=== PATIENT | female | born 1985 | race African-American/Black ===

== ENCOUNTER 2017-12-11 22:37 | Emergency (ER) | payer MEDICAID, OTHER ==
[~2017-12-11] VITALS: Ht 172.7 cm; Wt 68.2 kg
[~2017-12-11 22:37] MED LIST: ALBU8HFA IH
[2017-12-12] MEDS ORDERED: KETOROLAC TROMETHAMINE 60 MG/2 ML VIAL IM ONE
[2017-12-12 02:20] VITALS: BP 124/81
== END 2017-12-12 02:23 | disposition home or self-care (01) ==
LOC: EMS 22:38
DX: R07.89 Other chest pain (principal); F17.210 Nicotine dependence, cigarettes, uncomplicated; J45.909 Unspecified asthma, uncomplicated; Z88.0 Allergy status to penicillin; Z88.6 Allergy status to analgesic agent; Z88.5 Allergy status to narcotic agent
CPT/HCPCS: 71046; 81025; 93005; 96372; 99284; 99406; J1885

== ENCOUNTER 2019-10-29 23:47 | Emergency (ER) | payer OTHER ==
[~2019-10-29] VITALS: Ht 175.3 cm; Wt 7.3 kg
[2019-10-30] MEDS ORDERED: IBUPROFEN 800 MG TABLET PO ONE (04:30)
[2019-10-30 04:49] VITALS: BP 149/99
== END 2019-10-30 04:51 | disposition home or self-care (01) ==
LOC: EMS 23:49
DX: S60.212A Contusion of left wrist, initial encounter (principal); J45.909 Unspecified asthma, uncomplicated; F17.210 Nicotine dependence, cigarettes, uncomplicated; Z79.899 Other long term (current) drug therapy; Z98.890 Other specified postprocedural states; Z88.0 Allergy status to penicillin; Z88.5 Allergy status to narcotic agent; Z88.8 Allergy status to other drugs, medicaments and biological substances; Z88.6 Allergy status to analgesic agent; Y04.8XXA Assault by other bodily force, initial encounter; Y93.89 Activity, other specified; Y92.89 Other specified places as the place of occurrence of the external cause; Y99.8 Other external cause status

== ENCOUNTER 2020-08-05 15:48 | Emergency (ER) | payer OTHER ==
[~2020-08-05] VITALS: Ht 175.3 cm; Wt 72.7 kg
[2020-08-05] MEDS ORDERED: IBUPROFEN 600 MG TABLET PO ONE (16:15)
[2020-08-05] MEDS ORDERED: HydrOXYzine PAMOATE 50 MG CAPSULE PO ONE (16:15)
[2020-08-05 16:42] LABS: BASOPHILS % (AUTO) 0.7 % (0.0-2.0); EOSINOPHILS % (AUTO) 0.7 % (1.0-6.0); HEMATOCRIT 35.1 % (36-46); HEMOGLOBIN 12.1 g/dL (12.0-16.0); LYMPHOCYTES # (AUTO) 1.7 K/uL (1.0-4.8); LYMPHOCYTES % (AUTO) 22.2 % (22.0-44.0); MEAN CORPUSCULAR HEMOGLOBIN 35.7 pg (26.0-34.0); MEAN CORPUSCULAR HGB CONC 34.6 G/dL (31.0-37.0); MEAN CORPUSCULAR VOLUME 103 fL (80-100); MONOCYTES # (AUTO) 0.6 K/uL (0.1-1.0); MONOCYTES % (AUTO) 8.1 % (2.0-9.0); NEUTROPHILS # (AUTO) 5.3 K/uL (1.8-7.7); NEUTROPHILS % (AUTO) 68.3 % (40.0-70.0); PLATELET COUNT (AUTO) 256 K/uL (150-450); RED CELL DISTRIBUTION WIDTH 14.8 % (11.5-14.5)
[2020-08-05 17:01] LABS: PROTHROMBIN TIME 10.5 SEC (9.4-11.6)
[2020-08-05 17:02] LABS: ALANINE AMINOTRANSFERASE 18 U/L (12-78); ALBUMIN 4.4 g/dL (3.4-5.0); ALKALINE PHOSPHATASE 112 U/L (46-116); ANION GAP 11 mmol/L (8-16); ASPARTATE AMINOTRANSFERASE 38 U/L (15-37); BILIRUBIN,TOTAL 1.1 mg/dL (0.1-1.0); C-REACTIVE PROTEIN QUANT 1.88 mg/dL (0.00-0.30); CALCIUM, TOTAL 9.6 mg/dL (8.8-10.5); CARBON DIOXIDE 26 mmol/L (22-29); CHLORIDE 99 mmol/L (98-107); CREATININE 0.79 mg/dL (0.60-1.30); GLOMERULAR FILTR. RATE CALC > 60 mL/min (>60); GLUCOSE,RANDOM 102 mg/dL (70-110); HCG,QUANTITATIVE 1 mIU/mL (0-6); SODIUM SERUM 136 mmol/L (136-145); TOTAL PROTEIN, SERUM 7.5 g/dL (6.4-8.2); UREA NITROGEN, BLOOD 5 mg/dL (7-18)
[2020-08-05] MEDS ORDERED: LORazepam 1 MG TABLET PO ONE (17:15)
[2020-08-05] MEDS ORDERED: POTASSIUM CHLORIDE 20 MEQ ER TABLET PO ONE (17:15)
[2020-08-05 17:36] LABS: URIC ACID 3.8 mg/dL (2.6-7.2)
[2020-08-05 18:15] LABS: ERYTHROCYTE SEDIMENTATION RATE 3 MM/HR (0-20)
[2020-08-05] MEDS ORDERED: LIDOCAINE 1% 10 ML VIAL INJ ONE (18:30)
[2020-08-05 19:21] LABS: SPECIMENTYPE,BODY FLUID SYNOVIAL
[2020-08-05 19:57] LABS: APPEARANCE,UNSPUN,BODY FLUID CLOUDY (CLEAR)
[2020-08-05 19:59] LABS: COLOR,BODY FLUID YELLOW (LT YELLOW); TOTAL VOLUME,BODY FLUID 40 mL; WBC, BODY FLUID 17600 /cu. mm.
[2020-08-05 20:04] LABS: APPEARANCE,SPUN,BODY FLUID CLEAR (CLEAR)
[2020-08-05 20:17] LABS: LYMPHOCYTES,BODY FLUID 2 %; MONOCYTES,BODY FLUID 6 %; NEUTROPHILS,BODY FLUID 92 %
[2020-08-05 20:29] LABS: CRYSTALS, SYNOVIAL FLUID None Seen (None Seen)
[2020-08-05 20:30] LABS: BASOPHILS,BODY FLUID 0 %; EOSINOPHILS,BF (ANAL) 0 %; OTHER CELLS,BODY FLUID 0
[2020-08-05] MEDS ORDERED: MethylPREDNISolone SOD SUCC 125 MG/2 ML VIAL IM ONE (21:15)
[2020-08-05 21:20] VITALS: BP 160/89
== END 2020-08-05 21:46 | disposition home or self-care (01) ==
LOC: EMS 15:48
DX: M25.462 Effusion, left knee (principal); E87.6 Hypokalemia
CPT/HCPCS: 36415; 73564; 80053; 82945; 83615; 84157; 84550; 84560; 84702; 85025; 85610; 85651; 85730; 86140; 87070; 87205; 89051; 89060; 96372; 99284; J2930; J3490

== ENCOUNTER 2023-03-02 19:35 | Inpatient (IN) | payer BC, MEDICAID ==
[~2023-03-02] VITALS: Ht 172.7 cm; Wt 60.5 kg
[2023-03-02] MEDS ORDERED: AMLO10TA55 PO (22:20)
[2023-03-02] MEDS ORDERED: ASPI81TA39 PO (22:20)
[2023-03-02 22:23] LABS: AMPHET/METH SCREEN,URINE NEGATIVE (NEGATIVE); BARBITURATE SCREEN, URINE NEGATIVE (NEGATIVE); BENZODIAZEPINES SCREEN,URINE NEGATIVE (NEGATIVE); CANNABINOID SCREEN,URINE NEGATIVE (NEGATIVE); COCAINE SCREEN,URINE NEGATIVE (NEGATIVE); METHADONE SCREEN, URINE NEGATIVE (NEGATIVE); OPIATE SCREEN,URINE NEGATIVE (NEGATIVE); PHENCYCLIDINE SCREEN,URINE NEGATIVE (NEGATIVE)
[2023-03-02 22:40] LABS: BASOPHILS % (AUTO) 1.4 % (0.0-2.0); EOSINOPHILS % (AUTO) 2.8 % (1.0-6.0); HEMATOCRIT 33.7 % (36-46); HEMOGLOBIN 11.1 g/dL (12.0-16.0); LYMPHOCYTES # (AUTO) 1.3 K/uL (1.0-4.8); LYMPHOCYTES % (AUTO) 44.1 % (22.0-44.0); MEAN CORPUSCULAR HEMOGLOBIN 32.4 pg (26.0-34.0); MEAN CORPUSCULAR VOLUME 98 fL (80-100); MONOCYTES # (AUTO) 0.3 K/uL (0.1-1.0); MONOCYTES % (AUTO) 10.1 % (2.0-9.0); NEUTROPHILS # (AUTO) 1.2 K/uL (1.8-7.7); NEUTROPHILS % (AUTO) 41.6 % (40.0-70.0); PLATELET COUNT (AUTO) 218 K/uL (150-450); RED BLOOD CELL COUNT(AUTO) 3.43 MIL/uL (4.00-5.20); RED CELL DISTRIBUTION WIDTH 19.3 % (11.5-14.5)
[2023-03-02 22:57] LABS: ALANINE AMINOTRANSFERASE 80 U/L (12-78); ALKALINE PHOSPHATASE 93 U/L (46-116); ANION GAP 16 mmol/L (8-16); ASPARTATE AMINOTRANSFERASE 182 U/L (15-37); BILIRUBIN,TOTAL 0.4 mg/dL (0.1-1.0); CALCIUM, TOTAL 9.3 mg/dL (8.8-10.5); CARBON DIOXIDE 25 mmol/L (22-29); CHLORIDE 100 mmol/L (98-107); CREATININE 0.52 mg/dL (0.60-1.30); GLOMERULAR FILTR. RATE CALC > 60 mL/min (>60); GLUCOSE,RANDOM 140 mg/dL (70-110); SODIUM SERUM 141 mmol/L (136-145); TOTAL PROTEIN, SERUM 8.3 g/dL (6.4-8.2); UREA NITROGEN, BLOOD 7 mg/dL (7-18)
[2023-03-03 04:16] LABS: COVID AG,FIA SOURCE NASAL SWAB
[2023-03-03] MEDS ORDERED: POTASSIUM CHLORIDE 20 MEQ ER TABLET PO ONE (06:15)
[2023-03-03] MEDS ORDERED: QUEtiapine FUMARATE 100 MG TABLET PO PRN (07:15)
[2023-03-03] MEDS ORDERED: LORazepam 2 MG TABLET PO PRN (07:15)
[2023-03-03] MEDS ORDERED: ZOLPIDEM TARTRATE 10 MG TABLET PO PRN (07:15)
[2023-03-03 13:00] VITALS: BP 191/124
[2023-03-03 14:00] VITALS: BP 140/100
[2023-03-03] MEDS ORDERED: CloNIDine HCL 0.1 MG TABLET PO PRN (14:30)
[2023-03-03] MEDS ORDERED: AmLODIPine BESYLATE 5 MG TABLET PO ONE (14:30)
[2023-03-03] MEDS ORDERED: HydrOXYzine PAMOATE 50 MG CAPSULE PO PRN (16:30)
[2023-03-03] MEDS ORDERED: PROMETHAZINE HCL 25 MG TABLET PO PRN (16:30)
[2023-03-03] MEDS ORDERED: DIAZEPAM 10 MG TABLET PO ONE (16:30)
[2023-03-03] MEDS ORDERED: TUBERCULIN, PURIFIED PROTEIN DERIVATIVE 5 TU/0.1 ML SYRINGE ID ONE (16:30)
[2023-03-03] MEDS ORDERED: MAG HYDROX/AL HYDROX/SIMETH ES 30 ML SUSPENSION UDCUP PO PRN (16:30)
[2023-03-03] MEDS ORDERED: LOPERAMIDE HCL 2 MG CAPSULE PO PRN ×2 (16:30)
[2023-03-03] MEDS ORDERED: DIAZEPAM 10 MG TABLET PO PRN (16:30)
[2023-03-03] MEDS ORDERED: GuaiFENesin/D-METHORPHAN [SUGAR-FREE] 200-20MG/10 ML SYRUP UDCUP PO PRN (16:30)
[2023-03-03] MEDS ORDERED: MAGNESIUM HYDROXIDE SUSPENSION 30 ML UDCUP PO PRN (16:30)
[2023-03-03] MEDS ORDERED: CYANOCOBALAMIN 1,000 MCG/ML VIAL IM ONE (16:30)
[2023-03-03] MEDS: THIAMINE 100 MG TABLET PO SCH (17:13)
[2023-03-03] MEDS: TOPIRAMATE 25 MG TABLET PO SCH ×2 (17:13→20:52)
[2023-03-03 19:48] VITALS: BP 120/81
[2023-03-03 20:00] VITALS: BP 130/89
[2023-03-03] MEDS: MIRTAZAPINE 15 MG TABLET PO SCH (20:52)
[2023-03-03] MEDS: MELATONIN 5 MG TABLET PO SCH (20:53)
[2023-03-03 21:03] VITALS: BP 121/88
[2023-03-04] VITALS (8 sets, daily range): BP systolic 90–141; BP diastolic 54–95
[2023-03-04] MEDS ORDERED: DIAZEPAM 10 MG TABLET PO PRN (07:00)
[2023-03-04 08:20] LABS: HEMOGLOBIN A1C 5.1 % (3.8-5.6)
[2023-03-04 08:29] LABS: ALANINE AMINOTRANSFERASE 293 U/L (12-78); ALBUMIN 4.3 g/dL (3.4-5.0); ALKALINE PHOSPHATASE 102 U/L (46-116); ANION GAP 12 mmol/L (8-16); ASPARTATE AMINOTRANSFERASE 886 U/L (15-37); BILIRUBIN,TOTAL 2.5 mg/dL (0.1-1.0); CARBON DIOXIDE 25 mmol/L (22-29); CHLORIDE 97 mmol/L (98-107); CHOLESTEROL 292 mg/dL (131-200); CREATININE 1.04 mg/dL (0.60-1.30); FREE T4 (FREE THYROXINE) 0.98 ng/dL (0.76-1.46); GLOMERULAR FILTR. RATE CALC > 60 mL/min (>60); GLUCOSE,RANDOM 111 mg/dL (70-110); HDL CHOLESTEROL 145 mg/dL (40-60); LDL CHOL (CALC.) 111 mg/dL (0-130); POTASSIUM 3.1 mmol/L (3.5-5.1); SODIUM SERUM 134 mmol/L (136-145); THYROID STIMULATING HORMONE 1.29 uIU/mL (0.36-3.74); TOTAL PROTEIN, SERUM 8.3 g/dL (6.4-8.2); TRIGLYCERIDES 179 mg/dL (15-150); UREA NITROGEN, BLOOD 10 mg/dL (7-18)
[2023-03-04] MEDS: LISINOPRIL 5 MG TABLET PO SCH (08:46)
[2023-03-04] MEDS: THIAMINE 100 MG TABLET PO SCH ×2 (08:46→17:33)
[2023-03-04] MEDS: NALTREXONE HCL 50 MG TABLET PO SCH (08:46)
[2023-03-04] MEDS: FOLIC ACID 1 MG TABLET PO SCH (08:46)
[2023-03-04] MEDS: DIAZEPAM 10 MG TABLET PO SCH ×4 (08:46→21:00)
[2023-03-04] MEDS: TOPIRAMATE 25 MG TABLET PO SCH ×4 (08:46→20:18)
[2023-03-04] MEDS: OMEGA-3/DHA/EPA/FISH OIL 1,000 MG CAPSULE PO SCH (08:46)
[2023-03-04] MEDS ORDERED: AmLODIPine BESYLATE 5 MG TABLET PO SCH (09:00)
[2023-03-04] MEDS: MULTIVITAMINS WITH MINERALS, THERAPEUTIC TABLET PO SCH (09:03)
[2023-03-04] MEDS ORDERED: POTASSIUM CHLORIDE 20 MEQ ER TABLET PO ONE (18:00)
[2023-03-04] MEDS: MIRTAZAPINE 15 MG TABLET PO SCH (20:18)
[2023-03-04] MEDS: MELATONIN 5 MG TABLET PO SCH (20:18)
[2023-03-05 07:37] LABS: ANION GAP 12 mmol/L (8-16); CALCIUM, TOTAL 8.4 mg/dL (8.8-10.5); CARBON DIOXIDE 25 mmol/L (22-29); CHLORIDE 100 mmol/L (98-107); CREATININE 0.81 mg/dL (0.60-1.30); GLOMERULAR FILTR. RATE CALC > 60 mL/min (>60); GLUCOSE,RANDOM 83 mg/dL (70-110); POTASSIUM 3.6 mmol/L (3.5-5.1); SODIUM SERUM 137 mmol/L (136-145); UREA NITROGEN, BLOOD 18 mg/dL (7-18)
[2023-03-05] MEDS: FOLIC ACID 1 MG TABLET PO SCH (08:15)
[2023-03-05] MEDS: TOPIRAMATE 25 MG TABLET PO SCH ×3 (08:15→16:20)
[2023-03-05] MEDS: LISINOPRIL 5 MG TABLET PO SCH (08:15)
[2023-03-05] MEDS: OMEGA-3/DHA/EPA/FISH OIL 1,000 MG CAPSULE PO SCH (08:15)
[2023-03-05] MEDS: NALTREXONE HCL 50 MG TABLET PO SCH (08:15)
[2023-03-05] MEDS: DIAZEPAM 10 MG TABLET PO SCH ×3 (08:15→16:20)
[2023-03-05] MEDS: THIAMINE 100 MG TABLET PO SCH ×2 (08:15→16:20)
[2023-03-05] MEDS: MULTIVITAMINS WITH MINERALS, THERAPEUTIC TABLET PO SCH (08:15)
[2023-03-05 08:36] VITALS: BP 118/79
[2023-03-05 10:22] VITALS: BP 118/79
[2023-03-05] MEDS ORDERED: MELA5TAB40 PO (14:28)
[2023-03-05] MEDS ORDERED: MIRT-89 PO (14:28)
[2023-03-05] MEDS ORDERED: OMEG-135 PO (14:28)
[2023-03-05] MEDS ORDERED: TOPI25 PO (14:28)
[2023-03-05] MEDS ORDERED: LISI-892 PO (15:26)
[2023-03-06 02:06] LABS: HEPATITIS C AB (EIA) Non Reactive (Non Reactive)
[2023-03-06] MEDS ORDERED: DIAZEPAM 5 MG TABLET PO PRN (07:00)
[2023-03-06] MEDS ORDERED: DIAZEPAM 5 MG TABLET PO SCH (09:00)
[2023-03-07] MEDS ORDERED: DIAZEPAM 5 MG TABLET PO PRN (07:00)
== END 2023-03-05 16:35 | disposition home or self-care (01) | DRG 885 ==
LOC: EMS 19:35 → B3A 03-03 12:08
PROVIDERS: ADMIT Psychiatry & Neurology Psychiatry; ATTEND Psychiatry & Neurology Psychiatry
PROC: GZHZZZZ Group Psychotherapy (ICD-10-PCS; principal; 2023-03-03)
PROC: GZ51ZZZ Individual Psychotherapy, Behavioral (ICD-10-PCS; 2023-03-03)
DX: F33.2 Major depressive disorder, recurrent severe without psychotic features (principal); R45.851 Suicidal ideations; Z20.822 Contact with and (suspected) exposure to COVID-19; D64.9 Anemia, unspecified; D72.819 Decreased white blood cell count, unspecified; F10.10 Alcohol abuse, uncomplicated; G89.29 Other chronic pain; R79.89 Other specified abnormal findings of blood chemistry; F17.210 Nicotine dependence, cigarettes, uncomplicated; E87.6 Hypokalemia; Y90.8 Blood alcohol level of 240 mg/100 ml or more; I10 Essential (primary) hypertension; J44.9 Chronic obstructive pulmonary disease, unspecified; Z55.9 Problems related to education and literacy, unspecified; Z56.0 Unemployment, unspecified; Z59.01 Sheltered homelessness; Z63.9 Problem related to primary support group, unspecified; Z65.3 Problems related to other legal circumstances; Z87.59 Personal history of other complications of pregnancy, childbirth and the puerperium; Z88.0 Allergy status to penicillin; Z88.6 Allergy status to analgesic agent; Z88.8 Allergy status to other drugs, medicaments and biological substances; Z79.899 Other long term (current) drug therapy; Z79.82 Long term (current) use of aspirin
CPT/HCPCS: 80048; 80053; 80061; 80074; 80307; 83036; 84439; 84443; 85025; 86592; 99285; G0480; J3420; Q9967